=== PATIENT | female | born 1955 | race Caucasian/White ===

== ENCOUNTER → 2016-09-29 | Outpatient (CLI) | payer OTHER ==
--- NOTE | 2016-09-29 14:21 | RAD ---
DATE: 09/29/2016 EXAM: DIGITAL SCREEN BILAT W/CAD HISTORY: Asymptomatic screening mammogram. COMPARISON: Prior mammogram from 11/20/2014 This study was interpreted with the benefit of Computerized Aided Detection (CAD). The breast parenchyma shows scattered fibroglandular densities. Breast parenchyma level B. FINDINGS: Bilateral CC and MLO views of the breasts were performed. Right breast: There are no suspicious microcalcifications, masses or areas of architectural distortion. Left breast: There are no suspicious microcalcifications, masses or areas of architectural distortion. Findings are stable from prior mammogram. IMPRESSION: Negative bilateral mammogram. Recommend annual screening mammography. BI-RADS CATEGORY: 1 NEGATIVE RECOMMENDED FOLLOW-UP: 12M 12 MONTH FOLLOW-UP PQRS compliance statement: Patient information was entered into a reminder system with a target due date 09/29/2017 for the next mammogram. Mammography is a sensitive method for finding small breast cancers, but it does not detect them all and is not a substitute for careful clinical examination. A negative mammogram does not negate a clinically suspicious finding and should not result in delay in biopsying a clinically suspicious abnormality. "Our facility is accredited by the [employer] Mammography [employer]."
== END | disposition home or self-care (01) ==
LOC: MAMMO 10:40
PROVIDERS: ATTEND Nurse Practitioner
DX: Z12.31 Encounter for screening mammogram for malignant neoplasm of breast (principal)
CPT/HCPCS: G0202; 77067

== ENCOUNTER → 2017-12-20 | Outpatient (CLI) | payer OTHER ==
--- NOTE | 2017-12-21 09:30 | RAD ---
DATE: 12/20/2017 EXAM: DIGITAL SCREEN BILAT W/CAD HISTORY: Routine screening COMPARISON: 09/29/2016 This study was interpreted with the benefit of Computerized Aided Detection (CAD). Breast Density: HETERO The breast parenchyma is heterogenously dense, which could reduce sensitivity of mammography. Breast parenchyma level C. FINDINGS: No new or enlarging breast densities are seen. No suspicious microcalcifications are evident. IMPRESSION: Stable mammograms without evidence of malignancy. BI-RADS CATEGORY: 1 NEGATIVE RECOMMENDED FOLLOW-UP: 12M 12 MONTH FOLLOW-UP PQRS compliance statement: Patient information was entered into a reminder system with a target due date for the next mammogram. Mammography is a sensitive method for finding small breast cancers, but it does not detect them all and is not a substitute for careful clinical examination. A negative mammogram does not negate a clinically suspicious finding and should not result in delay in biopsying a clinically suspicious abnormality. "Our facility is accredited by the [employer] Mammography [employer]."
== END | disposition home or self-care (01) ==
LOC: MAMMO 13:11
DX: Z12.31 Encounter for screening mammogram for malignant neoplasm of breast (principal)
CPT/HCPCS: 77067

== ENCOUNTER → 2020-09-29 | Outpatient (CLI) | payer OTHER | LOC: MAMMO 15:42 | PROVIDERS: ATTEND Family Medicine | DX: Z12.31 Encounter for screening mammogram for malignant neoplasm of breast (principal) | CPT/HCPCS: 77063; 77067 ==

== ENCOUNTER → 2020-11-06 | Outpatient (CLI) | payer OTHER ==
--- NOTE | 2020-11-06 14:06 | RAD ---
US BREAST LTD LT, MG DIAGNOSTICUNILAT MAMMO 11/06/2020 1:35 PM INDICATION: Asymptomatic screening mammogram. COMPARISON: Abnormal mammogram TECHNIQUE: Spot compression CC and MLO views of the left breast as well as full field true lateral wa s performed. Targeted sonographic evaluation of the left breast was performed. FINDINGS: Upon spot compression there is residual focal asymmetry in the left breast at the 9:00 position, 6 cm from the nipple. Targeted sonographic evaluation was performed. At the 9:00 position, 6 cm from the nipple there is a circumscribed hypoechoic mass without posterior characteristics. Finding may repres ent an intramammary lymph node versus fibroadenoma measuring 8 x 4 x 8 mm. This corresponds with mamm ographic abnormality. Findings are probably benign. Six-month follow-up right mammogram and ultrasoun d is recommended. IMPRESSION: Probably benign findings of the left breast with hypoechoic mass measuring 8 x 4 x 8 mm. Differential consideration would include fibroadenoma versus intramammary lymph node. Six-month imaging follow-up is recommended. BI-RADS category: 3; Probably Benign Recommendations: 6 months follow-up mammogram and ultrasound recommended of the left breast. Electronically signed by: Renetta Robles MD (11/06/2020 2:04 PM) [id number]
== END ==
LOC: MAMMO 12:29
PROVIDERS: ATTEND Family Medicine
DX: N64.89 Other specified disorders of breast (principal)
CPT/HCPCS: 76642; 77065

== ENCOUNTER → 2021-06-24 | Outpatient (CLI) | payer OTHER ==
--- NOTE | 2021-06-24 15:33 | RAD ---
EXAM: Left breast diagnostic mammogram with tomosynthesis; left breast sonogram. HISTORY: 66-year-old female presents for follow-up evaluation of findings within the left breast demo nstrated on prior imaging. TECHNIQUE: Full-field digital craniocaudal and mediolateral oblique 2D and 3D tomosynthesis images of the left breast are obtained for evaluation. Computer aided detection was applied. Sonographic imagi ng of the left breast targeted to sites of prior mammographic and sonographic findings was also perfo rmed. COMPARISON: 11/06/2020, 09/29/2020, 12/20/2017 BREAST PARENCHYMAL DENSITY: Level C - Heterogeneously dense. FINDINGS: There is a stable nodular density within the central left breast posterior to the nipple li ne is 67 cm from the nipple. There are additional areas of asymmetry and nodularity which are also st able in appearance. There is no new suspicious mass, calcification or architectural distortion. Sonographic imaging of the left breast demonstrates a circumscribed oval nonvascular hypoechoic lesio n at the 7:30 position 6.5 cm from the nipple measuring 10 x 9 x 4 mm. The depth of this nodule appea rs to be slightly decreased compared to the prior exam and the length of the nodule appears slightly increased compared to the prior exam. The overall volume is unchanged. No new lesion is seen. IMPRESSION: 1. 10 mm benign-appearing nodule within the 7:30 position of the left breast 6.5 cm from the nipple, the appearance of which favors a fibroadenoma. The overall volume of this lesion is unchanged when al lowing for differences in measurement technique. 2. No new suspicious mammographic or sonographic finding. 3. BI-RADS Category 3: Probably benign finding(s). Continued short-term sonographic follow-up of the left breast to confirm longer-term stability of the aforementioned finding at the 7:30 position is re commended. This can be performed in 3-4 months to correspond with the previously established bilatera l mammography interval, and at subsequent 6 month intervals to confirm a 2 year course of stability. If your mammogram demonstrates that you have dense breast tissue, which could hide abnormalities, and if you have other risk factors for breast cancer that have been identified, you might benefit from s upplemental screening tests that may be suggested by your ordering physician. Dense breast tissue, i n and of itself, is a relatively common condition. This information is not provided to cause undue c oncern, but rather to raise your awareness and to promote discussion with your physician regarding th e presence of other risk factors, in addition to dense breast tissue. A report of your mammography re sults will be sent to you and your physician. You should contact your physician if you have any ques tions or concerns regarding this report. Mammography is a sensitive method for finding small breast cancers, but it does not detect them all a nd is not a substitute for careful clinical examination. A negative mammogram does not negate a clin ically suspicious finding and should not result in delay in biopsying a clinically suspicious abnorma lity. PQRS compliance statement - Patient information was entered into a reminder system with a target due date for the next mammogram. "Our facility is accredited by the [employer] Mammography [employer]." Electronically signed by: Alyssa Clement MD (06/24/2021 3:31 PM) [id number]
== END ==
LOC: MAMMO 13:38
PROVIDERS: ATTEND Family Medicine
DX: N63.24 Unspecified lump in the left breast, lower inner quadrant (principal)
CPT/HCPCS: 76641; 77065